=== PATIENT | male | born 1965 | race Caucasian/White ===

== ENCOUNTER → 2018-02-05 11:22 | Outpatient (CLI) | payer MEDICAID, SELFPAY ==
[2018-02-05 14:13] LABS: Blood Urea Nitrogen 14 mg/dL (7-18); Carbon Dioxide 30 mmol/L (21.0-32.0); Chloride 103 mmol/L (98-107); Creatinine,Serum 0.78 mg/dL (0.70-1.30); Sodium 141 mmol/L (136-145)
[2018-02-05 14:14] LABS: Alanine Aminotransferase 35 U/L (12-78); Albumin Level 3.8 gm/dL (3.4-5.0); Albumin/Globulin Ratio 1.1 (1.1-1.8); Alkaline Phosphatase 64 U/L (46-116); Aspartate Amino Transferase 10 U/L (15-37); Bilirubin,Total 0.5 mg/dL (0.2-1.0); Calcium 8.6 mg/dL (8.5-10.1); Chol/HDL Ratio 3.9 (1-3.5); Cholesterol 165 mg/dL (140-200); Estimated Glomerular Filt Rate 105 ml/min (>60); GFR (African American) 127 ML/MIN (>60); Globulin 3.4 gm/dl (1.3-3.2); Glucose 111 mg/dL (74-106); HDL Cholesterol 42 mg/dL (27-67); LDL Cholesterol 102 mg/dL (0-130); Total Protein,Serum 7.2 gm/dL (6.4-8.2); Triglycerides 105 mg/dL (30-200); VLDL Cholesterol 21 mg/dL (0-40)
[2018-02-05 14:46] LABS: Hemoglobin A1C 9.5 % (0.0-7.0)
== END ==
PROVIDERS: PCP Internal Medicine Adolescent Medicine; Visit Provider Internal Medicine Adolescent Medicine
DX: E78.5 Hyperlipidemia, unspecified (principal); E11.9 Type 2 diabetes mellitus without complications
CPT/HCPCS: 36415; 80053; 80061; 83036

== ENCOUNTER 2018-02-12 16:11 | Emergency (ER) | payer MEDICAID, SELFPAY ==
[2018-02-12 16:19] VITALS: BP 143/89; PULSE 88; RESP 20; TEMP 37.1; O2SAT 97; BMI 33.0
--- NOTE | 2018-02-12 16:35 | HMH.EDANIB ---
ED Disposition Clinical Impression: Hand laceration, Dog bite, Avulsion of skin of hand Disposition: Home, Self-Care Condition on Discharge: Good Instructions: Animal Bites Additional Instructions: 1- start abx. 2- wound recheck with pcp in 1-2 days. 3- return for redness, pain or discharge. 4- report that bite to [facility] for rabies prophylaxis and check on the offending dog vaccination 5- stitch removal in 10 days Referrals: Ron Quintero MD [Primary Care Provider] - - Critical Care Critical Care Time: No Attestation: On , the high probability of a clinically significant, sudden or life threatening deterioration of the following system(s) required my full and direct attention, intervention and personal management. The time I documented below is in addition to time spent performing reported procedures but includes the following listed in this critical care notation. Medical Decision Making - Marty Inquiry Pt receiving controlled substance: No Marty was queried for this patient: No Vital Signs: 02/12/18 16:19 Temperature 98.8 F Temperature Source Oral Pulse Rate [Right Brachial] 88 Respiratory Rate 20 Blood Pressure [Right Arm] 143/89 Blood Pressure Mean [Right Arm] 107 Blood Pressure Source [Right Arm] Automatic Cuff Blood Pressure Position [Right Arm] Sitting 02 Sat by Pulse Oximetry 97 Oxygen Delivery Method Room Air Medical Decision Narrative: I discussed with the patient the high risk of infection with dog bite. Only putting one interrupted stitch in the 3 cm laceration due to the gaping of the wound. He understands that he needs to have 1-[address] quintero in AM or friday. He needs to be on augmentin 875. need to report it to [facility]. Animal Bite HPI - General Chief Complaint: Animal Bite Stated Complaint: AO 02/12/18 @ 1515 Dog bite to left hand Time Seen by Provider: 02/12/18 16:20 Mode of Arrival: Family Vehicle Limitations: No Limitations Description of Symptoms (Recalled from ER Triage Doc. by RN): DOG BITE TO LEFT HAND WHILE TRYING TO SEPERATE DOGS FIGHTING - History of Present Illness HPI narrative: 52 years old male diabetic on a tapering dose of narcotic by his pcp, while he was walking his dog when another dog attacked his dog and he tried to break it up with the result of puncture wounds to the base of the second left digit and a 3 cm skin and subcutaneous laceration to the dorsum of the left hand, loss of movement no loss of sensation no loss of color. He stopped spontaneously. - Related Data Allergies Allergy/AdvReac Type Severity Reaction Status Date / Time No Known Allergies Allergy Verified 02/12/18 16:32 [facility] History I have reviewed the patient's past medical history: Yes Medical History: Reports:: Diabetes Mellitus Type 2 Denies:: Diabetes Mellitus Type 1 - Social History Alcohol Intake: never - Psychiatric History Expresses thoughts of harming self/others: None Suicide Plan Description: No Plan ROS Obtained: Yes All systems reviewed & no additional complaints Physical Exam - General General appearance: alert, in no apparent distress - Head Head exam: atraumatic, normocephalic, normal inspection - Eye Eye exam: Present: normal appearance, PERRL, EOMI - ENT ENT exam: Present: normal exam, normal oropharynx, mucous membranes moist, TM's normal bilaterally, normal external ear exam - Neck Neck exam: Present: normal inspection, full ROM, trachea midline. Absent: meningismus, lymphadenopathy - Chest Chest inspection: Present: normal inspection, symmetric chest wall rise. Absent: tenderness - Respiratory Respiratory exam: Present: normal lung sounds bilaterally. Absent: respiratory distress - Cardiovascular Cardiovascular exam: Present: regular rate, normal rhythm. Absent: JVD - Abdominal Exam Abdominal exam: Present: soft, normal bowel sounds. Absent: distention, tenderness, guarding - Extremities Exam
--- NOTE | 2018-02-12 16:38 | ED_ITS ---
ED Disposition Clinical Impression: Hand laceration, Dog bite, Avulsion of skin of hand Disposition: Home, Self-Care Condition on Discharge: Good Instructions: Animal Bites Additional Instructions: 1- start abx. 2- wound recheck with pcp in 1-2 days. 3- return for redness, pain or discharge. 4- report that bite to [facility] for rabies prophylaxis and check on the offending dog vaccination 5- stitch removal in 10 days Referrals: Ron Quintero MD [Primary Care Provider] - - Critical Care Critical Care Time: No Attestation: On , the high probability of a clinically significant, sudden or life threatening deterioration of the following system(s) required my full and direct attention, intervention and personal management. The time I documented below is in addition to time spent performing reported procedures but includes the following listed in this critical care notation. Medical Decision Making - Marty Inquiry Pt receiving controlled substance: No Marty was queried for this patient: No Vital Signs: 02/12/18 16:19 Temperature 98.8 F Temperature Source Oral Pulse Rate [Right Brachial] 88 Respiratory Rate 20 Blood Pressure [Right Arm] 143/89 Blood Pressure Mean [Right Arm] 107 Blood Pressure Source [Right Arm] Automatic Cuff Blood Pressure Position [Right Arm] Sitting 02 Sat by Pulse Oximetry 97 Oxygen Delivery Method Room Air Medical Decision Narrative: I discussed with the patient the high risk of infection with dog bite. Only putting one interrupted stitch in the 3 cm laceration due to the gaping of the wound. He understands that he needs to have 1-[address] quintero in AM or friday. He needs to be on augmentin 875. need to report it to [facility]. Animal Bite HPI - General Chief Complaint: Animal Bite Stated Complaint: AO 02/12/18 @ 1515 Dog bite to left hand Time Seen by Provider: 02/12/18 16:20 Mode of Arrival: Family Vehicle Limitations: No Limitations Description of Symptoms (Recalled from ER Triage Doc. by RN): DOG BITE TO LEFT HAND WHILE TRYING TO SEPERATE DOGS FIGHTING - History of Present Illness HPI narrative: 52 years old male diabetic on a tapering dose of narcotic by his pcp, while he was walking his dog when another dog attacked his dog and he tried to break it up with the result of puncture wounds to the base of the second left digit and a 3 cm skin and subcutaneous laceration to the dorsum of the left hand, loss of movement no loss of sensation no loss of color. He stopped spontaneously. - Related Data Allergies Allergy/AdvReac Type Severity Reaction Status Date / Time No Known Allergies Allergy Verified 02/12/18 16:32 [facility] History I have reviewed the patient's past medical history: Yes Medical History: Reports:: Diabetes Mellitus Type 2 Denies:: Diabetes Mellitus Type 1 - Social History Alcohol Intake: never - Psychiatric History Expresses thoughts of harming self/others: None Suicide Plan Description: No Plan ROS Obtained: Yes All systems reviewed & no additional complaints Physical Exam - General General appearance: alert, in no apparent distress - Head Head exam: atraumatic, normocephalic, normal inspection - Eye Eye exam: Present: normal appearance, PERRL, EOMI - ENT ENT exam: Present: normal exam, normal oropharynx, mucous membranes moist, TM's normal bilater
[2018-02-12 17:09] VITALS: BP 140/80; PULSE 80; RESP 18; TEMP 37; O2SAT 97
== END 2018-02-12 17:10 | disposition home or self-care (01) ==
PROVIDERS: Emergency Provider Emergency Medicine; Family Provider Internal Medicine Adolescent Medicine; PCP Internal Medicine Adolescent Medicine
DX: S61.211A Laceration without foreign body of left index finger without damage to nail, initial encounter (principal); W54.0XXA Bitten by dog, initial encounter; Y92.89 Other specified places as the place of occurrence of the external cause; E11.9 Type 2 diabetes mellitus without complications
CPT/HCPCS: 12002; 96372; 99281

== ENCOUNTER → 2018-06-15 10:19 | Outpatient (CLI) | payer MEDICAID, SELFPAY ==
--- NOTE | 2018-06-15 10:20 | XR_ITS ---
XR foot wt bearing LT 3V HISTORY: ITS.REASON: Ulcer ORDERING PHYSICIAN: Audrey Antoine DPM PATIENT AGE: 52 years COMPARISON: Left ankle 07/18/2017 FINDINGS: No fracture or dislocation. No lytic or blastic change. There is normal mineralization.. The joint spaces are well-preserved. No significant degenerative/arthritic changes. No erosive changes evident. There is a prominent spur of the calcaneus at insertion of plantar tendon with a tiny spur at insertion of Achilles tendon. There is slight flattening of the plantar arch. IMPRESSION: Mild class planus along with prominent calcaneal spur as noted
[2018-06-15 11:06] LABS: Basophils # 0.1 K/mm3 (0-0.2); Basophils % 0.8 % (0.1-2.0); Eosinophils # 0.5 K/mm3 (0.0-0.4); Eosinophils % 7.9 % (0.1-12.0); Hematocrit 49.2 % (42.0-52.0); Hemoglobin 16.3 g/dL (14.1-18.0); Lymphocytes # 2.2 K/mm3 (0.7-4.5); Lymphocytes % 32.6 K/mm3 (10-50); Mean Corpuscular HGB Conc 33.1 g/dL (31.8-35.4); Mean Corpuscular Hemoglobin 31.3 pg (27.0-31.2); Mean Corpuscular Volume 94.7 fl (80-94); Mean Platelet Volume 7.2 fl (7.4-10.4); Monocytes # 0.3 K/mm3 (0.1-1.0); Monocytes % 5.2 % (1.7-9.3); Neutrophils # 3.5 K/mm3 (1.8-7.8); Neutrophils % 53.5 % (37.0-80.0); Platelet Count 237 K/mm3 (142-424); Red Cell Distribution Width 12.7 % (11.5-17.5); White Blood Count 6.6 K/mm3 (4.8-10.8)
[2018-06-15 12:01] LABS: Erythrocyte Sedimentation Rate 10 mm/hr (0-15)
[2018-06-15 12:21] LABS: Alanine Aminotransferase 30 U/L (12-78); Albumin Level 3.8 gm/dL (3.4-5.0); Albumin/Globulin Ratio 1.1 (1.1-1.8); Alkaline Phosphatase 76 U/L (46-116); Aspartate Amino Transferase 10 U/L (15-37); Bilirubin,Total 0.3 mg/dL (0.2-1.0); Blood Urea Nitrogen 12 mg/dL (7-18); Calcium 8.8 mg/dL (8.5-10.1); Carbon Dioxide 26 mmol/L (21.0-32.0); Chloride 108 mmol/L (98-107); Creatinine,Serum 0.75 mg/dL (0.70-1.30); Estimated Glomerular Filt Rate 110 ml/min (>60); GFR (African American) 133 ML/MIN (>60); Globulin 3.6 gm/dl (1.3-3.2); Glucose 244 mg/dL (74-106); Sodium 144 mmol/L (136-145); Total Protein,Serum 7.4 gm/dL (6.4-8.2)
[2018-06-15 12:57] LABS: C-Reactive Protein < 0.2 mg/L (0.0-0.9)
== END ==
PROVIDERS: Visit Provider Podiatrist
DX: E11.621 Type 2 diabetes mellitus with foot ulcer (principal); L97.509 Non-pressure chronic ulcer of other part of unspecified foot with unspecified severity
CPT/HCPCS: 36415; 73630; 80053; 85025; 85651; 86140

== ENCOUNTER → 2018-07-14 08:08 | Outpatient (CLI) | payer MEDICAID, SELFPAY ==
[2018-07-14 09:15] LABS: Basophils # 0.1 K/mm3 (0-0.2); Basophils % 0.9 % (0.1-2.0); Eosinophils # 0.5 K/mm3 (0.0-0.4); Eosinophils % 8.1 % (0.1-12.0); Hematocrit 45.7 % (42.0-52.0); Hemoglobin 15.2 g/dL (14.1-18.0); Lymphocytes # 1.9 K/mm3 (0.7-4.5); Lymphocytes % 29.3 K/mm3 (10-50); Mean Corpuscular HGB Conc 33.3 g/dL (31.8-35.4); Mean Corpuscular Hemoglobin 31.9 pg (27.0-31.2); Mean Corpuscular Volume 95.8 fl (80-94); Mean Platelet Volume 6.9 fl (7.4-10.4); Monocytes # 0.3 K/mm3 (0.1-1.0); Monocytes % 5.2 % (1.7-9.3); Neutrophils # 3.6 K/mm3 (1.8-7.8); Neutrophils % 56.5 % (37.0-80.0); Platelet Count 223 K/mm3 (142-424); Red Blood Count 4.77 M/mm3 (4.60-6.20); Red Cell Distribution Width 12.9 % (11.5-17.5); White Blood Count 6.4 K/mm3 (4.8-10.8)
[2018-07-14 09:20] LABS: Alanine Aminotransferase 25 U/L (12-78); Albumin Level 3.6 gm/dL (3.4-5.0); Albumin/Globulin Ratio 0.9 (1.1-1.8); Alkaline Phosphatase 67 U/L (46-116); Anion Gap 10.2 mEq/L (5-15); Aspartate Amino Transferase 8 U/L (15-37); Bilirubin,Total 0.4 mg/dL (0.2-1.0); Blood Urea Nitrogen 17 mg/dL (7-18); Calcium 8.7 mg/dL (8.5-10.1); Carbon Dioxide 32 mmol/L (21.0-32.0); Chloride 104 mmol/L (98-107); Chol/HDL Ratio 4.5 (1-3.5); Cholesterol 162 mg/dL (140-200); Creatinine,Serum 0.83 mg/dL (0.70-1.30); Estimated Glomerular Filt Rate 98 ml/min (>60); GFR (African American) 119 ML/MIN (>60); Globulin 3.8 gm/dl (1.3-3.2); Glucose 141 mg/dL (74-106); HDL Cholesterol 36 mg/dL (27-67); LDL Cholesterol 98 mg/dL (0-130); Potassium 4.2 mmoL/L (3.5-5.1); Sodium 142 mmol/L (136-145); Total Protein,Serum 7.4 gm/dL (6.4-8.2); Triglycerides 141 mg/dL (30-200); VLDL Cholesterol 28 mg/dL (0-40)
--- NOTE | 2018-07-14 09:40 | CT_ITS ---
CT chest w con HISTORY: Hemoptysis ITS.REASON: HEMOPTYSIS ORDERING PHYSICIAN: Ron Márquez MD PATIENT AGE: 52 years COMPARISON: 11/26/2010 TECHNIQUE: Axial images obtained following the administration of 75 mL of Isovue 370 . Sagittal, and coronal reformatted images are also generated and reviewed. All CT scans at the facility use one or more dose reduction, viz: automated exposure control, ma/kV adjustment per patient size (including targeted exams where dose is matched to indication, i.e. head), or iterative reconstruction technique. FINDINGS: No mediastinal or hilar mass or adenopathy.. There is a stable 4 mm nodule in the superior segment of the right lower lobe and a stable 4 mm nodule in the right major fissure centrally. 3 mm nodule present in the right upper lobe inferiorly unchanged. 3 mm nodule present in the lingula unchanged. Subpleural nodule left lower lobe laterally 4 mm unchanged. No new nodules. No suspicious nodules. No infiltrates or effusions. No central obstructing lesions Upper abdominal images are unremarkable area no acute bony anomalies. IMPRESSION: 1. Stable CT appearance of the chest. 2. Scattered small bilateral nodular opacities appear benign and are unchanged. 3. No acute finding.
[2018-07-14 10:25] LABS: Hemoglobin A1C 8.3 % (0.0-7.0)
[2018-07-17 18:08] LABS: Strongyloides IgG Antibody Negative (Negative)
== END ==
PROVIDERS: Family Provider Internal Medicine Adolescent Medicine; PCP Internal Medicine Adolescent Medicine; Visit Provider Internal Medicine Adolescent Medicine
DX: R04.2 Hemoptysis (principal); E11.9 Type 2 diabetes mellitus without complications; E78.5 Hyperlipidemia, unspecified
CPT/HCPCS: 36415; 71260; 80053; 80061; 83036; 85025; 86682; Q9967

== ENCOUNTER → 2018-07-17 08:37 | Outpatient (CLI) | payer MEDICAID, SELFPAY ==
--- NOTE | 2018-07-17 08:39 | FL_ITS ---
FL upper GI series w/o air HISTORY: ITS.REASON: HEMOPTYSIS, DYSPHAGIA ORDERING PHYSICIAN: Ron Márquez MD PATIENT AGE: 52 years Comparison: None FINDINGS: The esophagus, stomach, and duodenum have an unremarkable appearance. Small sliding hiatal hernia noted with Valsalva. Reflux was not demonstrated during the exam. No ulcer or mass evident. No mucosal abnormalities apparent. There is normal peristalsis. The duodenal C-loop is nondisplaced. FLUOROSCOPY TIME : 1 minute and 47 seconds. IMPRESSION: Small sliding hiatal hernia with Valsalva otherwise negative upper GI
== END ==
PROVIDERS: Family Provider Internal Medicine Adolescent Medicine; PCP Internal Medicine Adolescent Medicine; Visit Provider Internal Medicine Adolescent Medicine
DX: R04.2 Hemoptysis (principal); R13.10 Dysphagia, unspecified
CPT/HCPCS: 74241

== ENCOUNTER → 2018-08-05 13:44 | Outpatient (CLI) | payer MEDICAID, SELFPAY ==
[2018-08-05 14:36] LABS: Basophils # 0.1 K/mm3 (0-0.2); Basophils % 0.5 % (0.1-2.0); Eosinophils # 0.5 K/mm3 (0.0-0.4); Eosinophils % 4.7 % (0.1-12.0); Hematocrit 47.2 % (42.0-52.0); Hemoglobin 16.2 g/dL (14.1-18.0); Lymphocytes # 2.8 K/mm3 (0.7-4.5); Lymphocytes % 26.7 K/mm3 (10-50); Mean Corpuscular HGB Conc 34.3 g/dL (31.8-35.4); Mean Corpuscular Hemoglobin 32.4 pg (27.0-31.2); Mean Corpuscular Volume 94.5 fl (80-94); Mean Platelet Volume 6.9 fl (7.4-10.4); Monocytes # 0.5 K/mm3 (0.1-1.0); Monocytes % 4.9 % (1.7-9.3); Neutrophils # 6.5 K/mm3 (1.8-7.8); Neutrophils % 63.2 % (37.0-80.0); Platelet Count 281 K/mm3 (142-424); White Blood Count 10.3 K/mm3 (4.8-10.8)
[2018-08-05 14:48] LABS: Alanine Aminotransferase 29 U/L (12-78); Albumin Level 3.9 gm/dL (3.4-5.0); Albumin/Globulin Ratio 0.9 (1.1-1.8); Alkaline Phosphatase 79 U/L (46-116); Amylase 28 U/L (25-125); Aspartate Amino Transferase 9 U/L (15-37); Bilirubin,Total 0.4 mg/dL (0.2-1.0); Blood Urea Nitrogen 21 mg/dL (7-18); Calcium 9.4 mg/dL (8.5-10.1); Carbon Dioxide 27 mmol/L (21.0-32.0); Chloride 99 mmol/L (98-107); Creatinine,Serum 1.52 mg/dL (0.70-1.30); Estimated Glomerular Filt Rate 49 ml/min (>60); GFR (African American) 59 ML/MIN (>60); Globulin 4.2 gm/dl (1.3-3.2); Glucose 273 mg/dL (74-106); Lipase 248 u/L (73-393); Sodium 137 mmol/L (136-145); Total Protein,Serum 8.1 gm/dL (6.4-8.2)
--- NOTE | 2018-08-05 15:46 | CT_ITS ---
CT abdomen pelvis w con CLINICAL INDICATION: Diffuse abdominal pain with nausea and vomiting ITS.REASON: ABD. PAIN, NAUSEA/VOMITING ORDERING PHYSICIAN: Estela Ng PATIENT AGE: 53 years COMPARISON: 12/02/2010 TECHNIQUE: Axial images obtained with sagittal and coronal reformats. All CT scans at the facility use one or more dose reduction, viz: automated exposure control, ma/kV adjustment per patient size (including targeted exams where dose is matched to indication, i.e. head), or iterative reconstruction technique. PROCEDURE: Oral Contrast: Redicat IV Contrast: 75 mL's of Isovue-370. FINDINGS: There is a noncalcified 4 mm nodule in the right lung base laterally nonspecific. 3 mm nodules present in the right lung base anteriorly. 3 mm nodule left lower lobe anteriorly. The liver, gallbladder, spleen, adrenal glands, pancreas, and kidneys have an unremarkable appearance. There is no evidence of intestinal obstruction. There are fluid-filled loops of small bowel in the left upper quadrant and left mid to lower abdomen with a few scattered air-fluid levels nonspecific possibly related to enteritis. No free air apparent. No focal inflammatory change. No pelvic mass abnormal fluid collection or focal inflammatory change. No evidence of diverticulitis. There has been prior appendectomy. No acute bony anomalies. There is grade 1 spondylitic spondylolisthesis of L5 on S1. IMPRESSION: 1. There are a few mildly fluid-filled small bowel loops in the left mid and lower abdominal region with a few air-fluid levels which may be related to enteritis. No evidence of obstruction. No focal inflammatory changes apparent. 2. No evidence of diverticulitis or other acute finding
== END ==
PROVIDERS: PCP Internal Medicine Adolescent Medicine; Visit Provider Nurse Practitioner Family
DX: R10.84 Generalized abdominal pain (principal); R19.7 Diarrhea, unspecified; R11.2 Nausea with vomiting, unspecified; E86.0 Dehydration
CPT/HCPCS: 36415; 74177; 80053; 82150; 83690; 85025; Q9967

== ENCOUNTER → 2018-08-08 13:22 | Outpatient (REF) | payer MEDICAID, SELFPAY ==
[2018-08-08 13:25] LABS: Adenovirus F 40/41, stool Not Detected (NotDetected); Astrovirus Not Detected (NotDetected); Campylobacter Not Detected (NotDetected); Clostridium Difficile A/B, PCR Not Detected (NotDetected); Cryptosporidium Not Detected (NotDetected); Cyclospora Cayetanesis Not Detected (NotDetected); Entamoeba histolytica Not Detected (NotDetected); Enteroaggregative E coli Not Detected (NotDetected); Enterotoxigenic E coli Not Detected (NotDetected); Giardia lamblia Not Detected (NotDetected); Norovirus Not Detected (NotDetected); Plesimonas Shigalloides, PCR Not Detected (NotDetected); Rotavirus A Not Detected (NotDetected); Salmonella, PCR Not Detected (NotDetected); Sapovirus Not Detected (NotDetected); Shiga-like toxin E coli Not Detected (NotDetected); Shigella Enterovasive E coli Not Detected (NotDetected); Vibrio Cholerae Not Detected (NotDetected); Vibrio, PCR Not Detected (NotDetected); Yersinia Entercolitica, PCR Not Detected (NotDetected)
[2018-08-08 15:41] LABS: Enteropathogenic E coli Detected (NotDetected)
== END ==
LOC: LAB 13:22
PROVIDERS: Visit Provider Nurse Practitioner Family
DX: R19.7 Diarrhea, unspecified (principal); R10.84 Generalized abdominal pain; R11.2 Nausea with vomiting, unspecified; E86.0 Dehydration
CPT/HCPCS: 87507

== ENCOUNTER 2020-06-04 11:40 | Emergency (ER) | payer OTHER, SELFPAY ==
[2020-06-04 11:41] VITALS: BP 160/93; PULSE 86; RESP 18; TEMP 36.6; O2SAT 98; BMI 29.8; BMI 31.1
[2020-06-04 11:58] LABS: Microscopic, Urine URINE MICROSCOPIC (MICROSCOPIC)
[2020-06-04 12:01] LABS: Appearance,Urine CLEAR (Clear); Bilirubin,Urine Negative (Negative); Blood, Urine Negative (Negative); Color,Urine YELLOW (Yellow); Glucose,Urine (UA) 3+ (Negative); Ketones,Urine Negative (Negative); Leukocyte Esterase,Urine Negative (Negative); Nitrate,Urine Negative (Negative); PH,Urine 5.5 (5.0-8.5); Protein,Urine Negative (Negative); Specific Gravity, Urine <= 1.005 (1.005-1.030); Urobilinogen,Urine 0.2 EU/dl (0.2)
[2020-06-04 12:05] LABS: RBC,Urine Occasional #/hpf (0-3); Squamous Epithelial Cell,Urine Occasional #/hpf (0-5)
[2020-06-04 12:33] LABS: Barbiturates Screen,Urine Negative ng/ml (<200)
[2020-06-04 12:34] LABS: Benzodiazepines Screen,Urine Negative ng/ml (<200)
[2020-06-04 12:35] LABS: Amphetamine/Metha Screen,Urine Negative ng/ml (<1000); Methadone Screen,Urine Negative ng/ml (<300)
[2020-06-04 12:36] LABS: Cannabinoid Screen,Urine Negative ng/ml (<50)
[2020-06-04 12:37] LABS: Cocaine Screen,Urine Negative ng/ml (<300); Opiate Screen,Urine Negative ng/ml (<300)
[2020-06-04 12:38] LABS: Phencyclidine Screen,Urine Negative ng/ml (<25)
[2020-06-04 12:50] LABS: Basophils # 0.1 K/mm3 (0-0.2); Basophils % 0.6 % (0.1-2.0); Eosinophils # 0.1 K/mm3 (0.0-0.4); Hematocrit 42.4 % (42.0-52.0); Hemoglobin 14.7 g/dL (14.1-18.0); Lymphocytes # 1.6 K/mm3 (0.7-4.5); Lymphocytes % 17.9 % (10-50); Mean Corpuscular HGB Conc 34.7 g/dL (31.8-35.4); Mean Corpuscular Hemoglobin 31.7 pg (27.0-31.2); Mean Corpuscular Volume 91.6 fl (80-94); Mean Platelet Volume 7.4 fl (7.4-10.4); Monocytes # 0.4 K/mm3 (0.1-1.0); Monocytes % 4.2 % (1.7-9.3); Neutrophils # 6.9 K/mm3 (1.8-7.8); Neutrophils % 76.4 % (37.0-80.0); Platelet Count 343 K/mm3 (142-424); Red Blood Count 4.63 M/mm3 (4.60-6.20); Red Cell Distribution Width 13.1 % (11.5-17.5)
[2020-06-04 12:54] LABS: Chloride 92 mmol/L (98-107); Potassium 4.4 mmoL/L (3.5-5.1); Sodium 133 mmol/L (136-145)
[2020-06-04 12:55] VITALS: BP 161/93; PULSE 89; RESP 16; O2SAT 99
[2020-06-04 12:57] LABS: Alanine Aminotransferase 22 U/L (12-78); Albumin Level 4.6 g/dl (3.5-5.0); Albumin/Globulin Ratio 1.2 (1.1-1.8); Alkaline Phosphatase 83 U/L (38-126); Anion Gap 16.4 mEq/L (5-15); Aspartate Amino Transferase 19 U/L (17-59); Bilirubin,Total 0.4 mg/dl (0.2-1.3); Blood Urea Nitrogen 20 mg/dl (9-20); Carbon Dioxide 29 mmol/L (22.0-30.0); Creatinine Clearance Estimated 182 mL/min (50-200); Estimated Glomerular Filt Rate 118 ml/min (>60); GFR (African American) 143 ML/MIN (>60); Globulin 3.8 g/dL (1.3-3.2); Total Protein,Serum 8.4 g/dl (6.3-8.2)
[2020-06-04 12:58] LABS: Calcium 9.8 mg/dl (8.4-10.2)
[2020-06-04 13:00] LABS: Glucose 462 mg/dl (74-100)
[2020-06-04 13:03] LABS: Acetone, Serum (Rapid) None Detected (None Detect)
[2020-06-04 13:05] LABS: VBG Base Excess -0.7 mmol/L (-2.4-2.3); VBG HCO3 24.4 mmol/L (23-30); VBG Oxygen Saturation 82.6 % (50-70); VBG PCO2 41.9 mmol/L (35-51); VBG PH 7.38 mmol/L (7.31-7.41); VBG PO2 49.5 mmol/L (28-40); VBG Total CO2 25.7 mmol/L (23-27)
--- NOTE | 2020-06-04 13:18 | HMH.EDGENADL ---
ED Disposition Clinical Impression: Diabetic neuropathy Disposition: Home, Self-Care Condition on Discharge: Good Instructions: Diabetic Neuropathy Prescriptions: Amitriptyline HCl [Elavil 25mg tablet] 25 mg PO HS 30 Days #30 tab Transmission Status: Pending to [id number] Nabumetone 750 mg PO BID 10 Days #20 tab Transmission Status: Pending to [id number] Referrals: Ron Márquez MD [Primary Care Provider] - - Critical Care Critical Care Time: No Attestation: On 06/04/20, the high probability of a clinically significant, sudden or life threatening deterioration of the following system(s) required my full and direct attention, intervention and personal management. The time I documented below is in addition to time spent performing reported procedures but includes the following listed in this critical care notation. Medical Decision Making - Medical Records Medical records reviewed: Yes: I reviewed the patient's medical records. - Marty Inquiry Pt receiving controlled substance: No Vital Signs: 06/04/20 12:55 Pulse Rate [Right Radial] 89 Respiratory Rate 16 Blood Pressure [Right Arm] 161/93 H Blood Pressure Mean [Right Arm] 115 Blood Pressure Source [Right Arm] Automatic Cuff Blood Pressure Position [Right Arm] Sitting 02 Sat by Pulse Oximetry 99 Oxygen Delivery Method Room Air - Lab Data Lab results reviewed: Yes: I reviewed the patient's lab results. Lab Results 06/04/20 11:35: Urine Color Yellow, Urine Appearance Clear, Urine pH 5.5, Ur Specific [place] <= 1.005, Urine Protein Negative, Urine Glucose (UA) 3+, Urine Ketones Negative, Urine Blood Negative, Urine Nitrate Negative, Urine Bilirubin Negative, Urine Urobilinogen 0.2, Ur Leukocyte Esterase Negative, Urine RBC Occasional, Urine WBC None, Ur Squamous Epith Cells Occasional, Urine Bacteria None 06/04/20 11:35: Urine Opiates Screen Negative, Urine Methadone Screen Negative, Ur Barbituates Screen Negative, Ur Phencyclidine Scrn Negative, Ur Amphetamines Screen Negative, U Benzodiazepines Scrn Negative, Urine Cocaine Screen Negative, U Marijuana (THC) Screen Negative 06/04/20 11:54: VBG pH 7.38, VBG pCO2 41.9, VBG pO2 49.5 H, VBG HCO3 24.4, VBG Total CO2 25.7, VBG O2 Saturation 82.6 H, VBG Base Excess -0.7 06/04/20 12:40: WBC 9.0, RBC 4.63, Hgb 14.7, Hct 42.4, MCV 91.6, MCH 31.7 H, MCHC 34.7, RDW 13.1, Plt Count 343, MPV 7.4, Neut % (Auto) 76.4, Lymph % (Auto) 17.9, [place] % (Auto) 4.2, Eos % (Auto) 1.0, Baso % (Auto) 0.6, Neut # (Auto) 6.9, Lymph # (Auto) 1.6, [place] # (Auto) 0.4, Eos # (Auto) 0.1, Baso # (Auto) 0.1 06/04/20 12:40: Sodium 133 L, Potassium 4.4, Chloride 92 L, Carbon Dioxide 29, Anion Gap 16.4 H, BUN 20, Creatinine 0.70, Estimated Creat Clear 182, Estimated GFR 118, Est GFR ( Amer) 143, Glucose 462 H*, Calcium 9.8, Total Bilirubin 0.4, AST 19, ALT 22, Alkaline Phosphatase 83, Total Protein 8.4 H, Albumin 4.6, Globulin 3.8 H, Albumin/Globulin Ratio 1.2 06/04/20 12:40: Acetone Level None detected Result diagrams: 06/04/20 12:40 06/04/20 12:40 Orders (Tests/Meds): ED MEDICATIONS Generic Name Dose Route Start Last Admin Trade Name Freq PRN Reason Stop Dose Admin Insulin Human Lispro 15 unit 06/04/20 13:17 Humalog 100 Units/Ml 3ml Vial (Ssi) SQ 06/04/20 13:18 ONCE ONE Ketorolac Tromethamine 30 mg 06/04/20 13:17 Toradol 30mg/Ml Vial IV 06/04/20 13:18 ONCE ONE Discontinued Medications Generic Name Dose Route Start Last Admin Trade Name Freq PRN Reason Stop Dose Admin Sodium Chloride 1,000 mls @ 999 mls/hr 06/04/20 12:00 06/04/20 12:49 Sod Chlor 0.9% 1000ml Bag IV 06/04/20 13:00 999 mls/hr .Q1H1M RAKAN Administration Medical Decision Narrative: Patient is 9 medications for diabetic neuropathy will go ahead and start the patient on nabumetone twice a day and Elavil nightly. If these fail to help over the next week or 2 he can follow-up with his primary care f
[2020-06-04 13:27] VITALS: BP 160/93; PULSE 83; RESP 18; O2SAT 99
[2020-06-04 14:35] VITALS: BP 117/78; PULSE 87; RESP 16; TEMP 36.6; O2SAT 98
[2020-06-06 03:44] LABS: POC Glucose,Bedside 498 (70-110)
[2020-06-06 03:44] LABS: POC Glucose,Bedside 305 (70-110)
== END 2020-06-04 14:39 | disposition home or self-care (01) ==
PROVIDERS: Emergency Provider Family Medicine; PCP Internal Medicine Adolescent Medicine
DX: E11.40 Type 2 diabetes mellitus with diabetic neuropathy, unspecified (principal); E11.65 Type 2 diabetes mellitus with hyperglycemia; Z79.4 Long term (current) use of insulin; I10 Essential (primary) hypertension; F41.8 Other specified anxiety disorders; K21.9 Gastro-esophageal reflux disease without esophagitis; E78.5 Hyperlipidemia, unspecified; Z79.899 Other long term (current) drug therapy
CPT/HCPCS: 80053; 80305; 81001; 82009; 82803; 82962; 85025; 96365; 96372; 96375; 96376; 99282; 99283; J2405

== ENCOUNTER 2020-06-06 09:53 | Emergency (ER) | payer OTHER, SELFPAY ==
[2020-06-06 09:54] VITALS: BP 159/115; PULSE 129; RESP 16; TEMP 37.1; O2SAT 98; BMI 31.1
--- NOTE | 2020-06-06 10:19 | PC.NURSE ---
BS 347
[2020-06-06 10:24] LABS: POC Glucose,Bedside 347 (70-110)
--- NOTE | 2020-06-06 10:28 | HMH.EDGENADL ---
ED Disposition Clinical Impression: Neuropathic pain Uncontrolled diabetes mellitus Qualifiers: Diabetes mellitus type: type 2 Glycemic state: with hyperglycemia Qualified Code(s): E11.65 - Type 2 diabetes mellitus with hyperglycemia Disposition: Home, Self-Care Condition on Discharge: Good Instructions: DI for Peripheral Neuropathy Referrals: Ron Márquez MD [Primary Care Provider] - Time of Disposition: 11:35 - Critical Care Critical Care Time: No Attestation: On 06/06/20, the high probability of a clinically significant, sudden or life threatening deterioration of the following system(s) required my full and direct attention, intervention and personal management. The time I documented below is in addition to time spent performing reported procedures but includes the following listed in this critical care notation. Medical Decision Making - Medical Records Medical records reviewed: Yes: I reviewed the patient's medical records. - Marty Inquiry Pt receiving controlled substance: No Vital Signs: 06/06/20 09:54 06/06/20 10:52 06/06/20 11:25 Temperature 98.8 F Temperature Source Oral Pulse Rate [Left Radial] 129 H 113 H 107 H Respiratory Rate 16 18 Blood Pressure [Right Arm] 159/115 H 124/82 Blood Pressure Mean [Right Arm] 129 96 Blood Pressure Source [Right Arm] Automatic Cuff Blood Pressure Position [Right Arm] Sitting Sitting 02 Sat by Pulse Oximetry 98 97 Oxygen Delivery Method Room Air Room Air - Lab Data Lab Results 06/06/20 10:17: POC Glucose 347 H* Orders (Tests/Meds): ED MEDICATIONS Discontinued Medications Generic Name Dose Route Start Last Admin Trade Name Freq PRN Reason Stop Dose Admin Ketorolac Tromethamine 30 mg 06/06/20 10:28 06/06/20 10:32 Toradol 30mg/Ml Vial IM 06/06/20 10:29 30 mg ONCE ONE Administration Medical Decision Narrative: In summary this is a 54-year-old male presenting to the emergency department with shooting pains in his hands and feet. Patient is in no distress on arrival, vital signs are stable. He has uncontrolled blood sugar and type 2 diabetes, most likely diagnosis is neuropathic pain. Patient also is a history of shingles, but does not have localized pain or a rash on his skin at this time. Patient given 15 mg of IM Toradol. Laboratory results from yesterday personally reviewed and interpreted. Patient's renal function is adequate, no gross electrolyte abnormalities. He was hyperglycemic yesterday. Fingerstick blood glucose today is 300. I counseled him the importance of close blood sugar management. Prolonged neuropathy is likely going to impact his renal function and his vision. He follows with Dr. Brock. I recommended he call the office today for follow-up. He may need to start taking something like gabapentin or Neurontin, but I do not feel it is best to start that medication from the emergency department. General Adult HPI - General Chief complaint: PAIN Stated complaint: shaking Time Seen by Provider: 06/06/20 10:28 Mode of Arrival: Ambulatory Limitations: No Limitations Description of Symptoms (Recalled from ER Triage Doc. by RN): to ed per pvt car with c/o pain, neuropathy, shooting pains arms and back. pt seen for same 06/04. pt states he has not made follow up appt with pcp. I was hoping you guys could help me - History of Present Illness HPI narrative: 54-year-old male presenting to the emergency department with shooting pains in his hands and feet. Symptoms were intense last night as he was trying to sleep. He had a shooting pain down the back of his left leg and into his foot. Also had pains in his fingers worse on the ring finger and pinky finger. Symptoms are improved when he walks. Are made worse at rest. His blood sugar has been elevated at home between 160 and 300. He says he is taking all medications as prescribed, does not know all of their names. He is eating and drinking wel
[2020-06-06 10:52] VITALS: BP 124/82; PULSE 113; RESP 18; O2SAT 97
[2020-06-06 11:25] VITALS: PULSE 107
[2020-06-06 11:39] VITALS: BP 124/81; PULSE 102; RESP 16; TEMP 36.6; O2SAT 97
--- NOTE | 2020-06-06 21:57 | ECG_ITS ---
APPROVED REPORT Exam: Resting ECG HR:119 bpm ECG Measurements Heart Rate 119 AXES VA 142 P 53 QRSd 82 QRS -73 QT 328 T 47 QTc 461 <Conclusion> Sinus tachycardia Possible Left atrial enlargement Pulmonary disease pattern RSR' or QR pattern in V1 suggests right ventricular conduction delay Left anterior fascicular block Abnormal ECG Electronically signed by : Ron Márquez, 06/08/2020 15:34:48
== END 2020-06-06 11:40 | disposition home or self-care (01) ==
PROVIDERS: Emergency Provider Emergency Medicine; PCP Internal Medicine Adolescent Medicine
DX: E11.42 Type 2 diabetes mellitus with diabetic polyneuropathy (principal); E11.65 Type 2 diabetes mellitus with hyperglycemia; Z79.84 Long term (current) use of oral hypoglycemic drugs; F41.8 Other specified anxiety disorders; K21.9 Gastro-esophageal reflux disease without esophagitis; E78.5 Hyperlipidemia, unspecified; I10 Essential (primary) hypertension; Z79.899 Other long term (current) drug therapy
CPT/HCPCS: 82962; 93005; 96372; 99282; 99283

== ENCOUNTER 2020-06-06 21:49 | Emergency (ER) | payer OTHER, SELFPAY ==
[2020-06-06 21:48] VITALS: BP 160/75; PULSE 76; RESP 16; TEMP 36.7; O2SAT 98; BMI 318.7
--- NOTE | 2020-06-06 21:57 | XR_ITS ---
PROCEDURE: XR CHEST PORTABLE CLINICAL HISTORY: SYNCOPAL EPISODE COMPARISON: No exams were available for comparison FINDINGS: The cardiomediastinal silhouette and pulmonary vascularity are within normal limits. The lungs are clear without infiltrates, suspicious nodules, or pleural effusions. No acute bony abnormalities. IMPRESSION: No acute findings. Dictated by: Kraig Myers MD 06/07/2020 07:29 Electronically signed by Kraig Myers MD in [place] 06/07/2020 07:29
[2020-06-06 22:24] LABS: Basophils # 0.1 K/mm3 (0-0.2); Basophils % 0.4 % (0.1-2.0); Eosinophils # 0.2 K/mm3 (0.0-0.4); Eosinophils % 1.3 % (0.1-12.0); Hematocrit 43.7 % (42.0-52.0); Hemoglobin 14.8 g/dL (14.1-18.0); Lymphocytes # 2.2 K/mm3 (0.7-4.5); Lymphocytes % 19.4 % (10-50); Mean Corpuscular HGB Conc 33.9 g/dL (31.8-35.4); Mean Corpuscular Hemoglobin 30.8 pg (27.0-31.2); Mean Corpuscular Volume 91.1 fl (80-94); Mean Platelet Volume 7.2 fl (7.4-10.4); Monocytes # 0.5 K/mm3 (0.1-1.0); Monocytes % 4.5 % (1.7-9.3); Neutrophils # 8.5 K/mm3 (1.8-7.8); Neutrophils % 74.3 % (37.0-80.0); Platelet Count 344 K/mm3 (142-424); Red Cell Distribution Width 13.5 % (11.5-17.5); White Blood Count 11.5 K/mm3 (4.8-10.8)
[2020-06-06 22:31] LABS: Microscopic, Urine URINE MICROSCOPIC (MICROSCOPIC)
[2020-06-06 22:32] LABS: Chloride 96 mmol/L (98-107); Potassium 3.9 mmoL/L (3.5-5.1); Sodium 140 mmol/L (136-145)
[2020-06-06 22:35] LABS: Anion Gap 14.9 mEq/L (5-15); Blood Urea Nitrogen 19 mg/dl (9-20); Calcium 9.6 mg/dl (8.4-10.2); Carbon Dioxide 33 mmol/L (22.0-30.0); Creatinine Clearance Estimated 86 mL/min (50-200); Estimated Glomerular Filt Rate 70 ml/min (>60); GFR (African American) 85 ML/MIN (>60); Glucose 283 mg/dl (74-100)
[2020-06-06 22:36] LABS: Appearance,Urine CLEAR (Clear); Bilirubin,Urine Negative (Negative); Blood, Urine Negative (Negative); Color,Urine YELLOW (Yellow); Glucose,Urine (UA) 3+ (Negative); Ketones,Urine Negative (Negative); Leukocyte Esterase,Urine Negative (Negative); Nitrate,Urine Negative (Negative); PH,Urine 5.5 (5.0-8.5); Protein,Urine 2+ (Negative); Specific Gravity, Urine >= 1.030 (1.005-1.030); Urobilinogen,Urine 0.2 EU/dl (0.2)
[2020-06-06 22:43] LABS: Bacteria,Urine Trace /lpf; Squamous Epithelial Cell,Urine Occasional #/hpf (0-5); WBC,Urine Occasional #/hpf (0-3)
[2020-06-06 22:45] VITALS: BP 120/76; PULSE 113; RESP 16; O2SAT 95
[2020-06-06 22:48] LABS: Barbiturates Screen,Urine Negative ng/ml (<200)
[2020-06-06 22:49] LABS: Benzodiazepines Screen,Urine Negative ng/ml (<200)
[2020-06-06 22:50] LABS: Amphetamine/Metha Screen,Urine Negative ng/ml (<1000); Methadone Screen,Urine Negative ng/ml (<300)
[2020-06-06 22:50] LABS: Troponin I < 0.01 ng/ml (0.00-0.034)
[2020-06-06 22:51] LABS: Cannabinoid Screen,Urine Negative ng/ml (<50)
[2020-06-06 22:52] LABS: Cocaine Screen,Urine Negative ng/ml (<300); Opiate Screen,Urine Positive ng/ml (<300)
[2020-06-06 22:53] LABS: Phencyclidine Screen,Urine Negative ng/ml (<25)
[2020-06-06 23:42] VITALS: BP 108/74; PULSE 85; O2SAT 95
[2020-06-07 00:38] VITALS: BP 100/76; PULSE 111; RESP 16; O2SAT 97
[2020-06-07 01:00] VITALS: BP 109/79; PULSE 113; RESP 16; O2SAT 95
[2020-06-07 01:08] LABS: Troponin I 0.02 ng/ml (0.00-0.034)
[2020-06-07 01:30] VITALS: BP 127/91; PULSE 116; RESP 15; O2SAT 96
[2020-06-07 01:49] LABS: Creatine Kinase 105 U/L (55-170)
[2020-06-07 02:00] VITALS: BP 130/88; PULSE 114; RESP 16; O2SAT 96
[2020-06-07 02:38] VITALS: BP 111/86; PULSE 101; RESP 16; O2SAT 94
--- NOTE | 2020-06-07 02:58 | [facility].EDWEAK ---
ED Disposition Clinical Impression: Heat exhaustion Disposition: Home, Self-Care Condition on Discharge: Fair Additional Instructions: Reviewed labs and see no acute findings of concern. Vital signs are stable also. you were given a liter of IV fluids. The diagnosis appears to be heat exhaustion which improved with hydration Referrals: Ron Márquez MD [Primary Care Provider] - Time of Disposition: 03:04 - Critical Care Critical Care Time: No Attestation: On 06/06/20, the high probability of a clinically significant, sudden or life threatening deterioration of the following system(s) required my full and direct attention, intervention and personal management. The time I documented below is in addition to time spent performing reported procedures but includes the following listed in this critical care notation. Medical Decision Making - Medical Records Medical records reviewed: Yes: I reviewed the patient's medical records. MR Comment: Reviewed labs and see no acute findings of concern. Vital signs are stable also. He was given a liter of IV fluids. The diagnosis appears to be heat exhaustion which improved with hydration - Marty Inquiry Pt receiving controlled substance: No Vital Signs: 06/06/20 21:48 06/06/20 22:45 06/06/20 23:42 Temperature 98.0 F Temperature Source Oral Pulse Rate [Right Brachial] 76 113 H 85 Respiratory Rate 16 16 Blood Pressure [Right Arm] 160/75 H 120/76 108/74 L Blood Pressure Mean [Right Arm] 103 90 85 Blood Pressure Source [Right Arm] Manual Cuff/ Palpation Automatic Cuff Automatic Cuff Blood Pressure Position [Right Arm] Sitting Sitting Sitting 02 Sat by Pulse Oximetry 98 95 95 Oxygen Delivery Method Room Air Room Air Room Air 06/07/20 00:38 06/07/20 01:00 06/07/20 01:30 Temperature Temperature Source Pulse Rate [Right Brachial] 111 H 113 H 116 H Respiratory Rate 16 16 15 Blood Pressure [Right Arm] 100/76 L 109/79 L 127/91 H Blood Pressure Mean [Right Arm] 84 89 103 Blood Pressure Source [Right Arm] Automatic Cuff Automatic Cuff Automatic Cuff Blood Pressure Position [Right Arm] Sitting Sitting Sitting 02 Sat by Pulse Oximetry 97 95 96 Oxygen Delivery Method Room Air Room Air 06/07/20 02:00 06/07/20 02:38 Temperature Temperature Source Pulse Rate [Right Brachial] 114 H 101 H Respiratory Rate 16 16 Blood Pressure [Right Arm] 130/88 111/86 Blood Pressure Mean [Right Arm] 102 94 Blood Pressure Source [Right Arm] Automatic Cuff Automatic Cuff Blood Pressure Position [Right Arm] Sitting Sitting 02 Sat by Pulse Oximetry 96 94 L Oxygen Delivery Method Room Air Room Air - Lab Data Lab results reviewed: Yes: I reviewed the patient's lab results. Lab Results 06/06/20 22:15: WBC 11.5 H D, RBC 4.80, Hgb 14.8, Hct 43.7, MCV 91.1, MCH 30.8, MCHC 33.9, RDW 13.5, Plt Count 344, MPV 7.2 L, Neut % (Auto) 74.3, Lymph % (Auto) 19.4, [place] % (Auto) 4.5, Eos % (Auto) 1.3, Baso % (Auto) 0.4, Neut # (Auto) 8.5 H, Lymph # (Auto) 2.2, [place] # (Auto) 0.5, Eos # (Auto) 0.2, Baso # (Auto) 0.1 06/06/20 22:15: Sodium 140, Potassium 3.9, Chloride 96 L, Carbon Dioxide 33 H, Anion Gap 14.9, BUN 19, Creatinine 1.10 D, Estimated Creat Clear 86, Estimated GFR 70, Est GFR ( Amer) 85 D, Glucose 283 H, Calcium 9.6, Troponin I < 0.01 06/06/20 22:17: Urine Color Yellow, Urine Appearance Clear, Urine pH 5.5, Ur Specific [place] >= 1.030, Urine Protein 2+, Urine Glucose (UA) 3+, Urine Ketones Negative, Urine Blood Negative, Urine Nitrate Negative, Urine Bilirubin Negative, Urine Urobilinogen 0.2, Ur Leukocyte Esterase Negative, Urine WBC Occasional, Ur Squamous Epith Cells Occasional, Urine Bacteria Trace 06/06/20 22:17: Urine Opiates Screen Positive H, Urine Methadone Screen Negative, Ur Barbituates Screen Negative, Ur Phencyclidine Scrn Negative, Ur Amphetamines Screen Negative, U Benzodiazepines Scrn Negative, Urine Cocaine Screen Negative, U Marijuana (THC) Screen Negative 06/07/20 00:42
[2020-06-07 03:10] VITALS: BP 148/107; PULSE 106; RESP 16; TEMP 36.7; O2SAT 98
== END 2020-06-07 03:16 | disposition home or self-care (01) ==
PROVIDERS: Emergency Provider Emergency Medicine; PCP Internal Medicine Adolescent Medicine
DX: T67.5XXA Heat exhaustion, unspecified, initial encounter (principal); F41.8 Other specified anxiety disorders; E78.5 Hyperlipidemia, unspecified; I10 Essential (primary) hypertension; K21.9 Gastro-esophageal reflux disease without esophagitis; E11.65 Type 2 diabetes mellitus with hyperglycemia
CPT/HCPCS: 36415; 71045; 80048; 80305; 81001; 82550; 84484; 85025; 96365; 99284